=== PATIENT | female | born 1965 | race Two or more races ===

== ENCOUNTER → 2024-02-12 | Outpatient (CLI) | payer MEDICAID, SELFPAY ==
--- NOTE | 2024-02-12 10:27 | XR_ITS ---
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
--- NOTE | 2024-02-12 10:29 | XR_ITS ---
Examination: Bilateral hands, 6 views. Technique: AP, Oblique, Lateral each hand total 6 views Date and time of exam: February 12, 2024 1038 hours INDICATIONS: History fracture left fourth digit 2 years ago in fracture right hand fifth digit December 2023 Findings: Moderate osteopenia Old fracture proximal phalanx left fourth digit with marked residual deformity Comminuted intra-articular fracture involving the base of the middle phalanx fifth digit marked displacement of a 5 mm fracture fragment and 4 mm fracture fragment on the lateral view IMPRESSION: Acute markedly displaced intra-articular fractures base middle phalanx right fifth digit
== END | disposition home or self-care (01) ==
PROVIDERS: PCP Family Medicine; Referring Provider Nurse Practitioner Gerontology; Visit Provider Nurse Practitioner Gerontology
DX: M19.042 Primary osteoarthritis, left hand (principal); M19.041 Primary osteoarthritis, right hand; M18.0 Bilateral primary osteoarthritis of first carpometacarpal joints; S62.626A Displaced fracture of middle phalanx of right little finger, initial encounter for closed fracture; X58.XXXA Exposure to other specified factors, initial encounter
CPT/HCPCS: 73110; 73130

== ENCOUNTER 2024-04-22 16:07 | Emergency (ER) | payer MEDICAID, SELFPAY ==
[2024-04-22 16:09] VITALS: BMI 28.3
--- NOTE | 2024-04-22 16:12 | EKG_ITS ---
[facility] Test Date: 2024-04-22 Pat Name: ELMER RDZ Department: Room: - Gender: Female [employer]: : 1965 Requested By: ED Temporary Provider Order Number: [id number] Reading MD: ED Temporary Provider Measurements Intervals [place] Rate: 99 P: 50 DC: 181 QRS: 49 QRSD: 85 T: 71 QT: 346 QTc: 445 Interpretive Statements SINUS RHYTHM LOW QRS VOLTAGE IN PRECORDIAL LEADS [QRS DEFLECTION < 1.0 mV IN CHEST LEADS] Compared to ECG 03/08/2021 15:48:01 Sinus tachycardia no longer present Myocardial infarct finding no longer present /store/S0/[id number]/[id number].pdf
[2024-04-22 16:30] VITALS: BP 111/79; PULSE 100; RESP 18; TEMP 36.9; O2SAT 99
--- NOTE | 2024-04-22 16:37 | XR_ITS ---
Examination: Foot, left, 3 views Technique: AP, oblique, lateral views foot, 3 views Date and time of exam: April 22, 2024 5:21 PM INDICATIONS: Left foot pain beginning 3 days ago. FINDINGS: Soft tissue swelling about the fifth metatarsophalangeal joint. No fracture. No cortical bone destruction. No opaque foreign body IMPRESSION: No fracture
--- NOTE | 2024-04-22 16:37 | XR_ITS ---
Examination: PA lateral chest 2 views TECHNIQUE: Upright PA and lateral chest 2 views Standing tongue: April 22, 2024 1723 hours Comparison September 17, 2022 INDICATION: Chest pain began 3 days ago. FINDINGS: Normal heart size. No pneumonia or pulmonary edema. Moderate osteopenia IMPRESSION: No pneumonia or pulmonary edema
--- NOTE | 2024-04-22 16:38 | PD.EDRME ---
Rapid Medical Screening Exam [facility] Arrival date/time: 04/22/24 16:07 58-year-old female with a history of hypertension, and type 2 diabetes presents to the emergency room with a chief complaint of 6 out of 10 sternal chest pain that radiates to her left arm causing numbness and tingling x 3 days but has progressively gotten worse today. Patient is also complaining of a left toe that has discoloration and pain. I have greeted and performed a focused initial assessment of this patient. A comprehensive ED assessment and evaluation of the patient, analysis of all test results, and completion of the medical decision making process will be conducted by additional ED providers. Chief Complaint: Chest Pain Vital signs: Vital Signs Temperature 98.5 F 04/22/24 16:30 Pulse Rate 100 04/22/24 16:30 Respiratory Rate 18 04/22/24 16:30 Blood Pressure 111/79 04/22/24 16:30 Pulse Oximetry (%) 99 04/22/24 16:30 Oxygen Delivery Method Room Air 04/22/24 16:30 Vital signs reviewed by provider: Yes
[2024-04-22 17:15] LABS: Basophils # (Auto) 0.1 Thou/mm3 (0.0-0.2); Basophils % (Auto) 1 % (0-2.5); Eosinophils # (Auto) 0.1 Thou/mm3 (0.0-0.5); Eosinophils % (Auto) 1 % (0-10); Hematocrit 41.8 % (36.0-46.0); Hemoglobin 14.4 g/dL (12.0-16.0); Immature Granulocytes % (Auto) 0 % (0-0); Immature Granulocytes Auto 0.02 Thou/mm3 (0.00-0.00); Lymphocytes # (Auto) 2.9 Thou/mm3 (1.0-4.8); Lymphocytes % (Auto) 31 % (10-50); Mean Corpuscular HGB Conc 34.4 g/dl (31.0-37.0); Mean Corpuscular Hemoglobin 30.1 pg (25.0-35.0); Mean Corpuscular Volume 87 fL (80-100); Monocytes # (Auto) 0.5 Thou/mm3 (0.0-0.8); Monocytes % (Auto) 5 % (0-12); Neutrophils # (Auto) 5.7 Thou/mm3 (1.8-7.7); Neutrophils % (Auto) 62 % (37-80); Nucleated Red Blood Cell % 0 /100 WBC (0); Platelet Count 334 Thou/mm3 (140-440); RDW Standard Deviation 40.3 fL (36.4-46.3); Red Blood Count 4.78 Miln/mm3 (4.00-5.20); White Blood Count 9.2 Thou/mm3 (3.6-11.0)
[2024-04-22 17:26] LABS: Sed Rate (ESR) 18 mm/hr (0-30)
[2024-04-22 17:36] LABS: B-Type Natriuretic Peptide < 20 pg/mL (0-100)
[2024-04-22 17:46] LABS: Alanine Aminotransferase 24 U/L (10-49); Albumin, Serum 4.8 gm/dL (3.5-5.0); Albumin/Globulin Ratio 1.6 (1.2-2.2); Alkaline Phosphatase 166 U/L (46-116); Anion Gap 10 (7-16); Aspartate Amino Transferase 13 U/L (0-34); BUN/Creatinine Ratio 23 Ratio (12-20); Bilirubin,Total 0.5 mg/dL (0.3-1.2); Blood Urea Nitrogen 23 mg/dL (9-23); C-Reactive Protein < 0.4 mg/dL (0.0-0.9); Calcium 9.5 mg/dL (8.3-10.6); Calcium (Corrected) 9.5 mg/dL (8.5-10.1); Carbon Dioxide 25.1 mMol/L (20.0-31.0); Chloride 103 mMol/L (98-107); Estimated Creatinine Clearance 62.2 mL/min (>60); Glucose 289 mg/dL (74-106); Magnesium 1.8 mg/dL (1.6-2.6); Osmolality,Calculated 290 (275-295); Potassium 3.7 mMol/L (3.4-5.1); Sodium 138 mMol/L (136-145); Total Protein 7.8 gm/dL (5.7-8.2); Troponin I 0.021 ng/mL (0.0-0.045); eGFR > 60 See Note
[2024-04-22 17:50] LABS: Collection Type, Urine Clean Catch
[2024-04-22 18:09] LABS: Bacteria,Urine 3+; Bilirubin,Urine Negative (Negative); Blood,Urine 1+ (Negative); Clarity,Urine Turbid (Clear/Hazy); Color,Urine Yellow (Lt Yel-Yel); Glucose, Urine 4+ (Negative); Hyaline Casts,Urine < 1 /hpf (0-1); Ketones,Urine Trace (Negative); Leukocyte Esterase,Urine Positive (Negative); Nitrite,Urine Negative (Negative); Protein,Urine 2+ (Neg - Trace); RBC,Urine 7 /hpf (0-3); Squamous Epithelial Cell,Urine 3 /hpf (0-5); WBC,Urine 147 /hpf (0-5)
--- NOTE | 2024-04-22 19:55 | PD.EDCHEST ---
ED Chest Pain RME/HPI General Chief Complaint: Chest Pain Stated Complaint: CHEST PAIN, TINGLING TO LT ARM FOR TWO DAYS, LT FO Time Seen by Provider: 04/22/24 19:39 Arrival date/time: 04/22/24 16:07 RME / HPI RME / HPI narrative: DR. SENA MAIN ED EVALUATION: 58-year-old female with a history of hypertension, and type 2 diabetes presents to the emergency room with a chief complaint of 6 out of 10 sternal chest pain that radiates to her left arm tingling that started 3 days ago. The patient states it is not exertional and not associated with shortness of breath. Patient states it was approximately 6 out of 10. It is since resolved. The reason she came in today is because she felt that she had fifth toe minimal swelling with minimal redness that started today. The increase in redness started this morning. Patient otherwise states she takes Ozempic at home and her fingersticks have been fine. Patient states that the symptoms have been present for the last 3 days. Patient states that she has been feeling more fatigued more today. Patient also complains of left fifth toe pain x 2 to 3 days. The patient states that the toe is pushing on the fourth toe and causing a area of mild redness. No redness is going up the foot or leg. The patient denies fevers shortness of breath, calf pain, trauma, abdominal pain, IV drug use, history of cancer, static lifestyle, prior deep vein thrombosis, prior pulmonary embolism, smoking, hormone therapy, joint pain, or bleeding disorders and is not currently . Related Data Home Medications ?Medication ?Instructions ?Recorded ?Confirmed glipizide 5 mg tablet 5 mg PO BID 09/17/22 09/17/22 lisinopril 20 mg tablet 20 mg PO DAILY 09/17/22 09/17/22 metformin 1,000 mg tablet 1,000 mg PO BID 09/17/22 09/17/22 pregabalin 100 mg capsule (Lyrica) 100 mg PO QDAY 09/17/22 09/17/22 zolpidem 5 mg tablet 5 mg PO HS 09/17/22 09/17/22 Previous Rx's ?Medication ?Instructions ?Recorded clindamycin HCl 300 mg capsule 300 mg PO Q6H #40 caps 04/22/24 Allergies Allergy/AdvReac Type Severity Reaction Status Date / Time No Known Allergies Allergy Verified 04/22/24 16:09 Review of Systems Review of Systems Systems Reviewed: All systems reviewed, normal except as documented Narrative Review of Systems: GEN: No fever, no chills, no weight loss, + fatigue EYES: No discharge, no visual changes, no pain HEENT: No ear pain, no congestion, no sore throat PULM: No shortness of breath, no cough, no congestion CV: + sternal chest pain that radiates to her left arm tingling (no more pain see HPI), no dyspnea on exertion, no palpitations GI: No nausea, no vomiting, no diarrhea, no pain, no constipation : No frequency, no urgency and no dysuria MUSC/SKEL: + left arm tingling, + left fifth toe pain x 2 to 3 days, no back pain SKIN: No rash PSYCH: No hallucinations, no depression HEME/LYMPH: No easy bleeding or bruising tendencies NEURO: No weakness, no headache Cardiovascular Comments: Chest pain 3 days ago Respiratory Comments: No shortness of breath Gastrointestinal Comments: No nausea vomiting or diarrhea Neurologic Comments: Tingling to left arm 3 days ago now resolved Allergic/Immunologic Comments: No rashes Past Medical History Past Medical History ENDOCRINE: Positive Diabetes Mellitus Type 2 Social History SMOKING STATUS: Never smoker SUBSTANCE USE: does not use ALCOHOL: Never Travel History EBOLA RISK: No ED Exam Narrative Physical exam: General: Non-toxic, well appearing, in no acute distress, and appears state age and well developed and well nourished. Head: Normocephalic and atraumatic. Eyes: extraocular movements intact. Nose: Nares without evidence of rhinorrhea. Neck: Supple without menigismus Heart: Regular rate and rhythm without murmur, gallops, or rubs. Lungs: Clear to auscultation without wheezing, rales, or rhonchi. Back: No costovertebral angle tenderness. Neurological: Alert and oriented to person, place, and time. Gait normal. Skin: Erythema left fourth toe. No edema, no warmth noted. Full range of motion of the fourth and fifth digits. No crepitus and no discharge. No evidence of sub cutaneous gas. No lymphangitis. No calf tenderness. Vascular: Normal pulses. No cords. No calf tenderness. Course Quality Measures none Orders Category Date Time Status EKG (ED ONLY) *Do not use* NOW Care 04/22/24 16:12 Completed EKG (ED Only) Stat Exams 04/22/24 16:12 Ordered XR chest 2V Stat Exams 04/22/24 16:37 Completed XR foot comp LT min 3V Stat Exams 04/22/24 16:37 Completed B-Type Natriuretic Peptide Stat Lab 04/22/24 16:58 Completed CBC Stat Lab 04/22/24 16:58 Completed CRP [C-Reactive Protein] Stat Lab 04/22/24 16:58 Completed Comprehensive Metabolic Panel Stat Lab 04/22/24 16:58 Completed ESR [Sed Rate (ESR)] Stat Lab 04/22/24 16:58 Completed Magnesium Stat Lab 04/22/24 16:58 Completed Troponin I Stat Lab 04/22/24 16:58 Completed Urinalysis Stat Lab 04/22/24 17:36 Completed Clindamycin Vial [Cleocin vial] Med 04/22/24 20:04 Discontinued 600 mg IM X1 ONE Vital Signs Vital signs: Vital Signs Temperature 98.5 F 04/22/24 16:30 Pulse Rate 100 04/22/24 16:30 Respiratory Rate 18 04/22/24 16:30 Blood Pressure 111/79 04/22/24 16:30 Pulse Oximetry (%) 99 04/22/24 16:30 Oxygen Delivery Method Room Air 04/22/24 16:30 Chest Pain MDM Narrative MDM Narrative:: Simple cellulitis identified without evidence of deep venous thrombosis as clinical exam matches cellulitic changes. No subcutaneous emphysema or crepitus, cardiac murmurs, significant systemic involvement, or joint involvement. Doubt endocarditis, necrotizing fasciitis, or other life threatening disorders. Given the patients good social situation, cellulitis not overlying the joint, and without any complicating factors in an immunocompetant host, the patient is to be treated as an outpatient with augmentin therapy. Plan to follow up in 72 hours for reevaluation. Vital signs remained stable throughout the emergency department course. The patient was given strict return precautions and was comfortable with the plan. Gwendolyn Trimble, am scribing for and in the presence of Dr. Sena. Patient data External records reviewed:: [facility] previous records (Reviewed last ED visit dated 09/17/22, discharged with the following: Abdominal wall contusion) Clinical information provided by:: patient Social determinants that could affect healthcare access:: none Patient has the following chronic illnesses:: Hypertension and type 2 diabetes How is presenting disease/condition affected by chronic disease/condition?: exacerbated by Evaluation data The following diagnostics were reviewed and interpreted by me:: lab results and radiology exam(s) Lab and/or radiology exams considered but not ordered:: None Interpretation Summary: With no osteomyelitis, no pneumonia or pleural effusion. X-ray left foot FINDINGS: Soft tissue swelling about the fifth metatarsophalangeal joint. No fracture. No cortical bone destruction. No opaque foreign body IMPRESSION: No fracture Medications / Prescriptions Medications or Prescriptions considered but not ordered:: None Medication administrations:: Medication Administration History Discontinued Medications Clindamycin Phosphate (Clindamycin Phos Inj 150 Mg/Ml Vial 6 Ml) 600 mg IM X1 ONE Stop: 04/22/24 20:05 Last Admin: 04/22/24 20:15 Dose: 600 mg Documented By: OA see above Consultations Consultation(s) initiated? (list below): No Diagnosis Chest Pain Differential Diagnosis: stable angina, atypical chest pain and other (Anxiety,) Most likely diagnosis given after review of the tests above:: Left toe cellulitis Admission Indicated Admission indicated?: not indicated Explain why admission is indicated or not indicated:: Patient pain-free. Troponin x 1 is negative and since she has had pain for intermittent for 3 days at this time I do not need a second troponin. Admission Request Was there a request for admission?: No Disposition Plan Disposition Plan: Discharge Discharge Attestation Discharge Attestation: The patient and all family members were given an opportunity to ask questions and understood the discharge instructions. Discharge instructions specifically effects, indications for sooner follow up or return to the emergency department, and the expected course of current diagnosis. Patient condition: Stable Discharge Plan Plan Patient Disposition: HOME (Self Care) Patient condition on transfer: Stable Prescriptions/Referrals Prescriptions/Med Rec: New clindamycin HCl 300 mg capsule 300 mg PO Q6H Qty: 40 0RF No Action zolpidem 5 mg tablet 5 mg PO HS Patient Comments: take 1 tablet by mouth at bedtime lisinopril 20 mg tablet 20 mg PO DAILY Patient Comments: take 1 tablet by mouth once daily metformin 1,000 mg tablet 1,000 mg PO BID Patient Comments: take 1 tablet by mouth with meals twice a day glipizide 5 mg tablet 5 mg PO BID Patient Comments: take 1 tablet by mouth every 12 hours pregabalin [Lyrica] 100 mg Capsule 100 mg PO QDAY Referrals: Alfie Chin MD [Primary Care Provider] - 04/24/24 (For a recheck of your toe/infection) Problem List Clinical Impression: Cellulitis Patient/Caregiver Discharge Instructions Education Materials: Discharge Instructions for Cellulitis Additional Instructions: DISCHARGE INSTRUCTIONS Even though you have been discharged from the Emergency Department, there are several things that you should do to ensure that you receive proper care: 1. DO READ your discharge instructions as these contain important information concerning your medical care. 2. If medication has been prescribed for your condition, fill the prescription as soon as possible and follow the directions on the medication. 3. RETURN AT ONCE TO THE EMERGENCY DEPARTMENT if you have any problems or concerns. These include but are not limited to fever, worsening pain (TOE PAIN, increasing redness, increase in blood sugars greater than 400 worsening shortness of breath, inability to tolerate food and water, or any condition that makes you question your well-being. Also, if your symptoms do not improve in the next 12-24 hours, return to the ER or seek medical care immediately.? 4. Be sure to follow up with your regular physician or specialist as instructed at discharge as this is the best way to ensure that you receive the very best of care. If you do not have a primary care physician, please contact a physician group and make an appointment. 5. Please visit [employer]?for coupons regarding your prescriptions. It is a free service for you to use and can help reduce the cost of your medication. We would like to thank you for coming today and our hope is that we served you and your family well during your stay Print Language: Yakut Stand Alone Forms: [employer] Info., Patient Portal Info Letter
[2024-04-22] MEDS: CLINDAMYCIN PHOS INJ 150 MG/ML VIAL 6 ML 600 MG IM (20:15)
[2024-04-22 20:23] VITALS: RESP 18
== END 2024-04-22 20:25 | disposition home or self-care (01) ==
PROVIDERS: Nurse Practitioner Family; Emergency Provider Emergency Medicine; PCP Family Medicine
DX: L03.032 Cellulitis of left toe (principal); R07.2 Precordial pain; I10 Essential (primary) hypertension; E11.9 Type 2 diabetes mellitus without complications
CPT/HCPCS: 36415; 71046; 73630; 80053; 81001; 83735; 83880; 84484; 85025; 85652; 86140; 93005; 96372; 99283; J0736